=== PATIENT | male | born 1990 | race Caucasian/White ===

== ENCOUNTER 2023-07-09 09:37 | Emergency (ER) | payer MEDICAID ==
[~2023-07-09] VITALS: Ht 162.6 cm; Wt 63.5 kg
[2023-07-09 09:37] VITALS: BP_SYST 106; PULSE 76; RESP 18; TEMP 98.5; O2SAT 98
[2023-07-09] MEDS ORDERED: HYDROcodone/ACETAMIN 5-325 MG TAB (NORCO/ VICODIN) PO ONE (10:45)
[2023-07-09 11:03] LABS: BASOPHILS % (AUTO) 0.3 % (0.0-2.0); EOSINOPHILS # (AUTO) 0.3 K/uL (0.0-0.4); EOSINOPHILS % (AUTO) 3.5 % (0.0-4.0); HEMOGLOBIN 15.5 g/dL (14.0-18.0); LYMPHOCYTES # (AUTO) 1.6 K/uL (1.0-5.5); LYMPHOCYTES % (AUTO) 19.4 % (20.5-51.5); MEAN CORPUSCULAR HEMOGLOBIN 32 pg (27-31); MEAN CORPUSCULAR HGB CONC 34 % (32-36); MEAN CORPUSCULAR VOLUME 96 fL (79.0-98.0); MONOCYTES # (AUTO) 0.7 K/uL (0.0-1.0); MONOCYTES % (AUTO) 8.5 % (1.7-9.3); NEUTROPHILS # (AUTO) 5.7 K/uL (1.8-7.7); NEUTROPHILS % (AUTO) 68.3 % (40.0-70.0); PLATELET COUNT (AUTO) 275 K/uL (130-430); RED CELL DISTRIBUTION WIDTH 13.3 % (9.0-15.0); WHITE BLOOD COUNT (AUTO) 8.4 K/uL (4.8-10.8)
[2023-07-09 11:13] LABS: CALCIUM 9.6 mg/dL (8.4-11.0); CREATININE 0.87 mg/dL (0.55-1.30); POTASSIUM 4.5 mmol/L (3.5-5.1)
[2023-07-09 11:19] LABS: INR 1.1 (0.80-1.20)
[2023-07-09 11:48] LABS: BILIRUBIN,URINE NEGATIVE (NEGATIVE); BLOOD, URINE NEGATIVE (NEGATIVE); CLARITY/URINE CLEAR (CLEAR); COLOR,URINE YELLOW (YELLOW); GLUCOSE,URINE NEGATIVE (NEGATIVE); KETONES,URINE NEGATIVE (NEGATIVE); LEUKOCYTE ESTERASE ,URINE NEGATIVE (NEGATIVE); NITRITE, URINE NEGATIVE (NEGATIVE); PH,URINE 7.5 (5.0-8.0); PROTEIN URINE TRACE (NEGATIVE); UROBILINOGEN,URINE 0.2 (0.2-1.0)
[2023-07-09] MEDS ORDERED: ONDANSETRON 4 MG ODT TAB PO ONE (12:15)
[2023-07-09] MEDS ORDERED: MORPHINE 4 MG INJ. 4 MG/ML VIAL IM ONE (12:15)
[2023-07-09] MEDS ORDERED: predniSONE 20 MG TABLET PO ONE (12:45)
[2023-07-09] MEDS ORDERED: HYDR-3927 PO (13:16)
[2023-07-09] MEDS ORDERED: MED4 PO (13:16)
[2023-07-09] MEDS ORDERED: IBUP-1969 PO (13:16)
[2023-07-09 13:28] VITALS: BP_SYST 106; PULSE 76; RESP 18; TEMP 98.5; O2SAT 98
== END 2023-07-09 13:27 | disposition home or self-care (01) ==
LOC: SED 09:37
DX: M51.26 Other intervertebral disc displacement, lumbar region (principal); M54.16 Radiculopathy, lumbar region; Z79.899 Other long term (current) drug therapy
CPT/HCPCS: 99285; 72131; 80048; 81001; 85025; 85610; 85730; 36415; 76376; 96372; 81003; Q0162; J7512; J2270

== ENCOUNTER 2023-10-14 17:46 | Emergency (ER) | payer OTHER, MEDICAID ==
[~2023-10-14] VITALS: Ht 152.4 cm; Wt 59.0 kg
[~2023-10-14 17:46] MED LIST: HYDR-3927 PO; IBUP-1969 PO; MED4 PO
[2023-10-14 17:55] VITALS: BP_SYST 145; PULSE 82; RESP 18; TEMP 98.3; O2SAT 98
[2023-10-14] MEDS: MORPHINE 4 MG INJ. 4 MG/ML VIAL IM ONE (19:49)
[2023-10-14 20:16] VITALS: BP_SYST 105; PULSE 64; RESP 18; TEMP 98.3; O2SAT 98
== END 2023-10-14 20:17 | disposition home or self-care (01) ==
LOC: SED 17:46
DX: S42.001A Fracture of unspecified part of right clavicle, initial encounter for closed fracture (principal); R03.0 Elevated blood-pressure reading, without diagnosis of hypertension; V29.888A Rider (driver) (passenger) of other motorcycle injured in other specified transport accidents, initial encounter; Y93.89 Activity, other specified; Y92.89 Other specified places as the place of occurrence of the external cause; Y99.8 Other external cause status
CPT/HCPCS: 99283; 96372; J2270